=== PATIENT | male | born 1950 | race Caucasian/White ===

== ENCOUNTER 2024-03-16 12:59 | Outpatient (CLI) | payer OTHER | END 2024-03-16 13:00 | disposition home or self-care (01) | LOC: RAD 12:59 | PROVIDERS: ATTEND Student in an Organized Health Care Education/Training Program | DX: I25.110 Atherosclerotic heart disease of native coronary artery with unstable angina pectoris (principal); M96.89 Other intraoperative and postprocedural complications and disorders of the musculoskeletal system; Z97.8 Presence of other specified devices | CPT/HCPCS: 71046 ==